=== PATIENT | female | born 1960 | race Caucasian/White ===

== ENCOUNTER 2019-11-13 08:21 | Emergency (ER) | payer MEDICARE ==
[2019-11-13 09:04] LABS: #Eosinphils 0.1 thou/uL (0.0-0.7); #Lymphocytes 1.2 thou/uL (1.20-3.40); #Monocytes 0.5 thou/uL (0.11-0.59); #Neutrophils 2.8 thou/uL (1.40-6.50); %Basophils 0.8 % (0.0-1.0); %Eosinophils 2.4 % (0.0-10.0); %Lymphocytes 26.2 % (21.0-51.0); %Monocytes 11.4 % (0.0-10.0); %Neutrophils 59.3 % (42.0-75.0); Hemoglobin 13.7 g/dL (12.0-16.0); Mean Corpuscular Hemoglobin 32.4 pg (27.0-31.0); Mean Corpuscular Volume 95.3 fL (78.0-98.0); Mean Platelet Volume 6.5 fL (7.4-10.4); Platelet Count 227 thou/uL (130-400); RBC Distribution Width 11.2 % (11.5-14.5); Red Blood Cell (RBC) Count 4.22 mill/uL (4.20-5.40); White Blood Cell (WBC) Count 4.7 thou/uL (4.8-10.8)
[2019-11-13] MEDS ORDERED: Morphine 4 MG/ML VIAL ONE (09:16)
[2019-11-13 09:19] LABS: ALT (SGPT) 49 U/L (8-55); AST (SGOT) 46 U/L (5-34); Albumin 4.1 g/dL (3.5-5.0); Alkaline Phosphatase 149 U/L (40-110); Anion Gap 17 mmol/L (10-20); BUN (Urea Nitrogen) 9 mg/dL (9.8-20.1); Bilirubin, Total 0.4 mg/dL (0.2-1.2); Calc. Creatinine Clearance 0 mL/min (70-130); Calcium 9.3 mg/dL (7.8-10.44); Carbon Dioxide 28 mmol/L (22-29); Chloride 98 mmol/L (98-107); Estimated GFR-MDRD 86; Glucose 76 mg/dL (70-105); Potassium 3.6 mmol/L (3.5-5.1); Protein, Total 7.1 g/dL (6.0-8.3); Sodium 139 mmol/L (136-145)
[2019-11-13] MEDS ORDERED: Iopamidol-370 76% 500 ML 1 ML ONE (10:17)
--- NOTE | 2019-11-13 10:58 | CT ---
CT ANGIOGRAM THORAX WITH IV CONTRAST AND 3-D RECONSTRUCTIONS CLINICAL INDICATION: Shortness of breath. COMPARISON: CT thorax on 11/10/2013 FINDINGS: Pulmonary arteries: No filling defects are seen in the pulmonary arteries to suggest a pulmonary embo michelle. Aorta: The aorta is normal in caliber without evidence of an aortic dissection. Lungs: There is consolidation at the right lung base which is felt to most likely be related to atele ctasis. Mild atelectasis is present at the left lung base. No discrete pulmonary nodule, mass, or pleural effusion is identified. Mediastinum: No enlarged lymph nodes are seen by CT size criteria. Thyroid gland: Small hypodense nodule is seen in the left lobe of thyroid gland with slight heterogen eity of the right lobe of thyroid gland. Thyroid nodules were seen in each lobe of thyroid gland on study in 2013. Osseous structures: Postoperative changes lower cervical spine are partially imaged with evidence of anterior cervical fusion. Prominent Schmorl's node seen in the superior endplate of the T4 vertebral body. Chest wall: Bilateral breast prostheses are present. Upper abdomen: Postcholecystectomy changes are seen. There is a low-density area seen in the left hep atic lobe adjacent to the region of the falciform ligament measuring 1.3 cm which could represent focal area of fatty infiltration. Similar finding was seen on CT abdomen on 07/04/2014. Vascular calci fications and atherosclerotic plaque are seen in the visualized proximal abdominal aorta. IMPRESSION: 1. Hypodense area left hepatic lobe just falciform ligament. Similar finding was seen on study in 201 5, and this may represent focal area of fatty infiltration. 2. No CT evidence for pulmonary embolus. 3. Mild consolidation right lung base felt to most likely be secondary to atelectasis. Pneumonia righ t lung base would be difficult to entirely exclude. 4. Evidence of cholecystectomy.
[2019-11-13] MEDS ORDERED: Ondansetron PF 4 MG/2 ML Vial ONE (11:05)
== END 2019-11-13 11:50 | disposition home or self-care (01) ==
LOC: ERS 08:21
DX: R06.02 Shortness of breath (principal); T41.3X5A Adverse effect of local anesthetics, initial encounter; F32.9 Major depressive disorder, single episode, unspecified; Z87.891 Personal history of nicotine dependence; Z79.899 Other long term (current) drug therapy
CPT/HCPCS: 71275; 80053; 84484; 85025; 93005; 96374; 96375; J2270; J2405; Q9967

== ENCOUNTER 2020-07-27 13:04 | Inpatient (IN) | payer MEDICARE ==
[2020-07-27] MEDS ORDERED: Lorazepam 2 MG/ML VIAL ONE (13:50)
[2020-07-27 14:18] LABS: Hemoglobin 13.7 g/dL (12.0-16.0); Mean Corpuscular Hemoglobin 33.8 pg (27.0-31.0); Mean Corpuscular Volume 99.5 fL (78.0-98.0); Mean Platelet Volume 6.7 fL (7.4-10.4); Platelet Count 215 thou/uL (130-400); RBC Distribution Width 13.1 % (11.5-14.5); Red Blood Cell (RBC) Count 4.06 mill/uL (4.20-5.40); White Blood Cell (WBC) Count 2.9 thou/uL (4.8-10.8)
[2020-07-27 14:39] LABS: ALT (SGPT) 45 U/L (8-55); AST (SGOT) 53 U/L (5-34); Albumin 4.1 g/dL (3.5-5.0); Alkaline Phosphatase 176 U/L (40-110); Anion Gap 12 mmol/L (10-20); BUN (Urea Nitrogen) 4 mg/dL (9.8-20.1); Bilirubin, Total 0.7 mg/dL (0.2-1.2); Calc. Creatinine Clearance 0 mL/min (70-130); Calcium 9.3 mg/dL (7.8-10.44); Carbon Dioxide 26 mmol/L (22-29); Chloride 103 mmol/L (98-107); Globulin 2.8 g/dL (2.4-3.5); Glucose 93 mg/dL (70-105); Potassium 3.8 mmol/L (3.5-5.1); Protein, Total 6.9 g/dL (6.0-8.3); Sodium 137 mmol/L (136-145)
[2020-07-27 14:46] LABS: Band 3 % (5-11); Eosinophils 1 % (0-10); Lymphocytes 25 % (21-51); MDiff Complete? YES; Macrocytosis SLIGHT = 6-15 cells (100X) (0-5/hpf); Monocytes 10 % (0-10); Neutrophil 54 % (42-75); Platelet Morphology Comment Appears Adequate; Reactive Lymphocytes 7 % (0-10)
[2020-07-27] MEDS ORDERED: diphenhydrAMINE 50 MG/ML VIAL ONE (16:12)
[2020-07-27] MEDS ORDERED: Metoclopramide HCl 10 MG/2 ML VIAL ONE (16:12)
[2020-07-27] MEDS ORDERED: Aspirin Chewable 81 MG TAB ONE (16:12)
[2020-07-27] MEDS ORDERED: Ondansetron ODT 4 MG TAB PO PRN (16:37)
[2020-07-27] MEDS ORDERED: Acetaminophen 650 MG Suppository PR PRN (16:37)
[2020-07-27] MEDS ORDERED: hydrALAZINE 20 MG/ML VIAL SLOW IVP PRN (16:37)
[2020-07-27] MEDS ORDERED: Acetaminophen 325 MG TAB PO PRN (16:37)
[2020-07-27] MEDS ORDERED: Ondansetron PF 4 MG/2 ML Vial IVP PRN (16:37)
[2020-07-27] MEDS ORDERED: Cyclobenzaprine 10 MG TAB ONE (20:21)
[2020-07-27] MEDS: Cyclobenzaprine 10 MG TAB PO PRN (20:22)
[2020-07-27 22:12] VITALS: BMI 22.4
[2020-07-27] MEDS: Atorvastatin Calcium 40 MG TAB PO SCH (22:35)
[2020-07-27] MEDS: HYDROcodone/Acetaminophen 10/325 mg Tablet PO PRN (22:42)
[2020-07-27 23:11] LABS: SARS-CoV-2 NAA Rapid Test Not Detected (NotDetected)
[2020-07-28 04:52] LABS: Hemoglobin 13.2 g/dL (12.0-16.0); Mean Corpuscular Hemoglobin 35.1 pg (27.0-31.0); Mean Platelet Volume 6.6 fL (7.4-10.4); Platelet Count 188 thou/uL (130-400); RBC Distribution Width 13.1 % (11.5-14.5); Red Blood Cell (RBC) Count 3.76 mill/uL (4.20-5.40)
[2020-07-28 04:59] LABS: Anion Gap 9 mmol/L (10-20); BUN (Urea Nitrogen) 6 mg/dL (9.8-20.1); Calc. Creatinine Clearance 75 mL/min (70-130); Calcium 8.8 mg/dL (7.8-10.44); Carbon Dioxide 28 mmol/L (22-29); Cardiac Risk 1.9 (Less than 4.5); Chloride 106 mmol/L (98-107); Cholesterol 208 mg/dl (< 200 Desired); Glucose 92 mg/dL (70-105); HDL Cholesterol 109 mg/dL (>60 Neg Risk); LDL Cholesterol, Calculated 84 mg/dL; Potassium 4.4 mmol/L (3.5-5.1); Sodium 139 mmol/L (136-145); Triglycerides 74 mg/dL (Less than 150)
[2020-07-28 06:00] LABS: MDiff Complete? YES
[2020-07-28 06:01] LABS: Band 3 % (5-11); Eosinophils 5 % (0-10); Lymphocytes 30 % (21-51); Monocytes 11 % (0-10); Neutrophil 51 % (42-75)
[2020-07-28] MEDS: HYDROcodone/Acetaminophen 10/325 mg Tablet PO PRN (07:55)
[2020-07-28] MEDS: Cyclobenzaprine 10 MG TAB PO PRN (07:55)
[2020-07-28] MEDS: Aspirin 81 mg Enteric Coated Tablet PO SCH (07:56)
[2020-07-28] MEDS: Ketorolac Tromethamine 30 MG/ML VIAL IVP SCH ×2 (12:00→17:48)
[2020-07-28] MEDS: diphenhydrAMINE 50 MG/ML VIAL IVP SCH ×2 (12:03→17:50)
[2020-07-28] MEDS: Prochlorperazine 10 MG/2 ML VIAL IVP SCH ×2 (12:06→17:53)
[2020-07-28] MEDS: Atorvastatin Calcium 40 MG TAB PO SCH (20:43)
[2020-07-29] MEDS: diphenhydrAMINE 50 MG/ML VIAL IVP SCH ×2 (00:05→05:45)
[2020-07-29] MEDS: Ketorolac Tromethamine 30 MG/ML VIAL IVP SCH ×2 (00:05→05:45)
[2020-07-29] MEDS: Prochlorperazine 10 MG/2 ML VIAL IVP SCH ×2 (00:06→05:46)
[2020-07-29] MEDS: Cyclobenzaprine 10 MG TAB PO PRN (04:05)
[2020-07-29] MEDS: HYDROcodone/Acetaminophen 10/325 mg Tablet PO PRN (04:05)
[2020-07-29 07:51] VITALS: BP 127/73; TEMP 98
[2020-07-29] MEDS: Aspirin 81 mg Enteric Coated Tablet PO SCH (08:44)
== END 2020-07-29 11:52 | disposition home or self-care (01) | DRG 103 ==
LOC: ERS 13:04 → ERHOLD 16:12 → 2SE 20:54 → OBSVTOIN 07-28 12:54
PROVIDERS: ADMIT Internal Medicine; ATTEND Internal Medicine
DX: G43.109 Migraine with aura, not intractable, without status migrainosus (principal); G81.94 Hemiplegia, unspecified affecting left nondominant side; Z20.822 Contact with and (suspected) exposure to COVID-19; E78.5 Hyperlipidemia, unspecified; M54.5 Low back pain; G89.29 Other chronic pain; Z88.2 Allergy status to sulfonamides; Z87.891 Personal history of nicotine dependence
CPT/HCPCS: 36415; 70450; 70551; 80048; 80053; 80061; 85025; 93306; 95712; 95819; 95957; 96374; 96375; 96376; G0378; J0780; J1200; J1885; J2060; J2765; U0002; U0005